=== PATIENT | female | born 1950 | race Caucasian/White ===

== ENCOUNTER 2018-11-23 07:55 | Emergency (ER) | payer MEDICARE ==
[~2018-11-23] VITALS: Ht 154.9 cm; Wt 50.0 kg
[2018-11-23 07:55] VITALS: BP 143/78
== END 2018-11-23 11:18 | disposition home or self-care (01) ==
LOC: ED 10:18
DX: S42.321A Displaced transverse fracture of shaft of humerus, right arm, initial encounter for closed fracture (principal); I10 Essential (primary) hypertension; Z87.891 Personal history of nicotine dependence; X58.XXXA Exposure to other specified factors, initial encounter; Y93.89 Activity, other specified; Y92.89 Other specified places as the place of occurrence of the external cause; Y99.8 Other external cause status
CPT/HCPCS: 71045; 73030; 73060; 73200; 96372; 99284; J1885

== ENCOUNTER 2019-03-13 18:14 | Emergency (ER) | payer MEDICARE ==
[~2019-03-13] VITALS: Ht 154.9 cm; Wt 50.8 kg
[2019-03-13 18:23] VITALS: BP 177/92
--- NOTE | 2019-03-13 20:30 | NUR ---
PT DISCHARGED BY DR CHO Addendum: 03/13/19 at 2104 by LHAFEN PT'S SPLINT WAS TAKEN OFF PER DR CHO AND PT WAS PUT IN A SLING.
== END 2019-03-13 20:32 | disposition home or self-care (01) ==
LOC: ED 20:26
DX: M79.621 Pain in right upper arm (principal); I10 Essential (primary) hypertension; M81.0 Age-related osteoporosis without current pathological fracture
CPT/HCPCS: 99281; 99282

== ENCOUNTER 2019-05-16 14:57 | Inpatient (IN) | payer MEDICARE ==
[~2019-05-16] VITALS: Ht 154.9 cm; Wt 55.0 kg
--- NOTE | 2019-05-16 15:09 | NUR ---
[facility] GLF THIS PM WITH SUBSEQUENT RT HIP PAIN. BIBA; REPORT RECEIVED FROM EMS. 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 PT DENIES HEAD INJURY/NECK PAIN/SYNCOPE. PT ATTACHED TO BP AND SPO2 MONITORS. CALL LIGHT IN REACH. REPORT GIVEN TO JESSIE OLIVAS AT BEDSIDE.
[2019-05-16] MEDS ORDERED: ONDANSETRON 2MG/ML, 2ML ONE ×2 (15:56→16:32)
[2019-05-16] MEDS ORDERED: HYDROmorphone 1 MG/ML, 1ML INJ ONE ×2 (15:56→19:16)
[2019-05-16] MEDS ORDERED: ONDANSETRON 2MG/ML, 2ML IVPush ONE (16:00)
--- NOTE | 2019-05-16 16:07 | NUR ---
PT AT XR
[2019-05-16] MEDS: HYDROmorphone 1 MG/ML, 1ML INJ IVPush PRN ×2 (16:34→19:23)
--- NOTE | 2019-05-16 16:38 | NUR ---
MEDS PER JUN. HIP FX. ERMD AT BEDSIDE TO UPDATE. PLAN FOR ADMIT.
[2019-05-16 16:45] LABS: BASOPHILS # (AUTO) 0.05 x10^3/uL (0-0.1); BASOPHILS % (AUTO) 1 % (0-1); EOSINOPHILS # (AUTO) 0.24 x10^3/uL (0-0.4); EOSINOPHILS % (AUTO) 2 % (1-7); LYMPHOCYTES # (AUTO) 2.11 x10^3/uL (1-3.4); LYMPHOCYTES % (AUTO) 18 % (22-44); MD NO; MEAN CORPUSCULAR HEMOGLOBIN 29.6 pg (27.0-34.8); MEAN CORPUSCULAR VOLUME 92.5 fL (80-100); MONOCYTES # (AUTO) 0.56 x10^3/uL (0.2-0.8); MONOCYTES % (AUTO) 5 % (2-9); NEUTROPHILS # (AUTO) 9.14 x10^3/uL (1.8-6.8); NEUTROPHILS % (AUTO) 76 % (42-75); PLATELET COUNT 406 x10^3/uL (130-400); RED BLOOD COUNT 3.38 x10^6/uL (3.82-5.3); RED CELL DISTRIBUTION WIDTH 13.8 % (9.6-15.2)
--- NOTE | 2019-05-16 16:51 | NUR ---
dr sheehan spoke with dr mccormack
[2019-05-16 16:55] LABS: INTERNATIONAL NORMALIZED RATIO 0.97 (0.93-1.1); PROTHROMBIN TIME 10.3 Seconds (9.6-11.5)
[2019-05-16 16:56] LABS: ALBUMIN 3.6 g/dL (3.4-5.0); ANION GAP 8 mmol/L (5-15); CALCIUM 9.5 mg/dL (8.5-10.1); CHLORIDE 111 mmol/L (98-107); CREATININE 0.74 mg/dL (0.55-1.02)
--- NOTE | 2019-05-16 18:14 | NUR ---
pt to go to sx, unknown when. asking for food, remains npo. freeman inserted, repostioned. as
--- NOTE | 2019-05-16 18:27 | NUR ---
PER DR. VIET LOZA TO PROVIDE PT WITH FOOD THIS EVENING, ASKED THAT PT BE NPO AFTER MIDNIGHT.
[2019-05-16] MEDS ORDERED: ONDANSETRON ODT 4 MG PO PRN (18:30)
[2019-05-16] MEDS ORDERED: ACETAMINOPHEN 325 MG TABLET PO PRN (18:30)
[2019-05-16] MEDS ORDERED: BISACODYL 10 MG SUPP PR PRN (18:30)
[2019-05-16] MEDS ORDERED: POLYETHYLENE GLYCOL 17 GM PACKET PO PRN (18:30)
[2019-05-16] MEDS ORDERED: HEPARIN 5,000 UNITS/ML, 1ML ONE (19:15)
[2019-05-16] MEDS: HEPARIN 5,000 UNITS/ML, 1ML SQ SCH (19:23)
[2019-05-16] MEDS ORDERED: SODIUM CHLORIDE FLUSH 10ML SYR IVF PRN (19:30)
--- NOTE | 2019-05-16 19:32 | NUR ---
meds per jun. given food per . report to gaurav chanel. pt transported. as
[2019-05-16 20:04] VITALS: BP 133/73
[2019-05-16] MEDS: SODIUM CHLORIDE FLUSH 10ML SYR IVF SCH (21:00)
[2019-05-16] MEDS ORDERED: NICOTINE 21 MG/24 HR PATCH.TD24 TD ONE (23:30)
[2019-05-16] MEDS: METHOCARBAMOL 500 MG TABLET PO PRN (23:53)
[2019-05-16] MEDS: TEMAZEPAM 15 MG CAPSULE PO PRN (23:53)
[2019-05-17 01:12] VITALS: BP 148/78
[2019-05-17] MEDS: HEPARIN 5,000 UNITS/ML, 1ML SQ SCH ×2 (02:30→10:28)
[2019-05-17 03:44] VITALS: BP 164/71
[2019-05-17 05:57] LABS: CHLORIDE 108 mmol/L (98-107)
[2019-05-17 06:02] LABS: ALANINE AMINOTRANSFERASE 20 U/L (12-78); ALBUMIN 2.8 g/dL (3.4-5.0); ALKALINE PHOSPHATASE 70 U/L (45-117); ANION GAP 7 mmol/L (5-15); BILIRUBIN,TOTAL 0.3 mg/dL (0.2-1.0); CREATININE 0.69 mg/dL (0.55-1.02); TOTAL PROTEIN 6.1 g/dL (6.4-8.2)
[2019-05-17 06:15] LABS: BASOPHILS # (AUTO) 0.05 x10^3/uL (0-0.1); BASOPHILS % (AUTO) 1 % (0-1); EOSINOPHILS # (AUTO) 0.18 x10^3/uL (0-0.4); EOSINOPHILS % (AUTO) 2 % (1-7); LYMPHOCYTES # (AUTO) 2.24 x10^3/uL (1-3.4); LYMPHOCYTES % (AUTO) 25 % (22-44); MD NO; MEAN CORPUSCULAR HEMOGLOBIN 30.3 pg (27.0-34.8); MEAN CORPUSCULAR HGB CONC 33.3 g/dL (32.4-35.8); MEAN CORPUSCULAR VOLUME 90.9 fL (80-100); MEAN PLATELET VOLUME 8.3 fL (7.4-10.4); MONOCYTES # (AUTO) 0.48 x10^3/uL (0.2-0.8); MONOCYTES % (AUTO) 5 % (2-9); NEUTROPHILS # (AUTO) 5.94 x10^3/uL (1.8-6.8); NEUTROPHILS % (AUTO) 67 % (42-75); PLATELET COUNT 363 x10^3/uL (130-400); RED BLOOD COUNT 2.91 x10^6/uL (3.82-5.3); RED CELL DISTRIBUTION WIDTH 13.8 % (9.6-15.2)
[2019-05-17 06:55] VITALS: BP 152/75
[2019-05-17] MEDS: DULOXETINE 30 MG CAPSULE.DR PO SCH (08:11)
[2019-05-17] MEDS: FAMOTIDINE 10 MG TAB PO SCH (08:12)
[2019-05-17] MEDS: SENNA/DOCUSATE TABLET PO SCH (08:12)
[2019-05-17] MEDS: morphine SULFATE 10 MG/ML, 1ML IVPush PRN (08:12)
[2019-05-17] MEDS: SODIUM CHLORIDE FLUSH 10ML SYR IVF SCH ×3 (08:12→21:00)
[2019-05-17] MEDS ORDERED: NEOSPORIN OINT, 15GM ONE (10:06)
[2019-05-17] MEDS ORDERED: PROMETHAZINE 25 MG/ML, 1ML IV PRN (10:30)
[2019-05-17] MEDS ORDERED: KETOROLAC 30 MG/1 ML IV PRN (10:30)
[2019-05-17] MEDS ORDERED: HYDROmorphone 2 MG/ML, 1ML IVPush PRN ×2 (10:30→14:30)
[2019-05-17] MEDS ORDERED: DIAZEPAM 5 MG/ML, 2ML IVPush PRN (10:30)
[2019-05-17] MEDS ORDERED: LABETALOL 5MG/ML, 20ML IV PRN (10:30)
[2019-05-17] MEDS ORDERED: ACETAMINOPHEN 325 MG TABLET PO PRN (10:30)
[2019-05-17] MEDS ORDERED: ALBUTEROL SULFATE 2.5 MG/3 ML NPPB PRN (10:30)
[2019-05-17] MEDS ORDERED: hydrALAzine 20 MG/ML, 1ML IV PRN (10:30)
[2019-05-17] MEDS ORDERED: MEPERIDINE/PF 25MG/0.5ML IVPush PRN (10:30)
[2019-05-17] MEDS ORDERED: FENTANYL PF 100 MCG/2ML ONE ×2 (10:32→11:18)
[2019-05-17] MEDS ORDERED: PROPOFOL 10 MG/ML, 20ML ONE (10:50)
[2019-05-17] MEDS ORDERED: CEFAZOLIN 1,000 MG ONE (10:50)
[2019-05-17] MEDS ORDERED: DEXAMETHASONE 4 MG/ML, 1ML ONE (10:50)
[2019-05-17] MEDS ORDERED: ONDANSETRON 2MG/ML, 2ML ONE (10:50)
[2019-05-17] MEDS: OXYcodone 5 MG/5 ML ORAL.SOL UDC PO PRN ×2 (11:17→12:18)
[2019-05-17] MEDS ORDERED: OXYcodone 5 MG/5 ML ORAL.SOL UDC ONE ×2 (11:18→12:18)
[2019-05-17] MEDS ORDERED: ACETAMINOPHEN 650 MG/20.3 ML UDC ONE (11:18)
[2019-05-17] MEDS: FENTANYL PF 100 MCG/2ML IV PRN ×2 (11:19→11:35)
[2019-05-17 13:11] VITALS: BP 148/71
[2019-05-17] MEDS ORDERED: ONDANSETRON 2MG/ML, 2ML IV PRN (15:00)
[2019-05-17] MEDS: KETOROLAC 30 MG/1 ML IV SCH ×2 (15:05→23:59)
[2019-05-17] MEDS: CEFAZOLIN PMX 1GM/50ML 50 ML IVPB SCH (17:51)
[2019-05-17] MEDS: OXYcodone/APAP 5/325MG TABLET PO PRN ×2 (19:20→23:59)
[2019-05-17 20:01] VITALS: BP 139/74
[2019-05-17] MEDS: NICOTINE 21 MG/24 HR PATCH.TD24 TD SCH (21:59)
[2019-05-17] MEDS: METHOCARBAMOL 500 MG TABLET PO PRN (21:59)
[2019-05-17] MEDS: TEMAZEPAM 15 MG CAPSULE PO PRN (23:58)
[2019-05-18] VITALS (10 sets, daily range): BP systolic 120–173; BP diastolic 67–79
[2019-05-18] MEDS: morphine SULFATE 10 MG/ML, 1ML IVPush PRN (02:12)
[2019-05-18] MEDS: CEFAZOLIN PMX 1GM/50ML 50 ML IVPB SCH (02:16)
[2019-05-18] MEDS: METHOCARBAMOL 500 MG TABLET PO PRN ×2 (05:10→20:06)
[2019-05-18] MEDS: OXYcodone/APAP 5/325MG TABLET PO PRN ×2 (05:10→10:06)
[2019-05-18] MEDS: KETOROLAC 30 MG/1 ML IV SCH (05:11)
[2019-05-18] MEDS ORDERED: ENOXAPARIN 40 MG/0.4 ML SQ SCH (06:00)
[2019-05-18 06:17] LABS: ANION GAP 10 mmol/L (5-15); CALCIUM 8.3 mg/dL (8.5-10.1); CHLORIDE 107 mmol/L (98-107)
[2019-05-18 06:18] LABS: CREATININE 1.21 mg/dL (0.55-1.02)
[2019-05-18 06:33] LABS: MEAN CORPUSCULAR HEMOGLOBIN 29.7 pg (27.0-34.8); MEAN CORPUSCULAR HGB CONC 32.4 g/dL (32.4-35.8); MEAN CORPUSCULAR VOLUME 91.5 fL (80-100); MEAN PLATELET VOLUME 8.7 fL (7.4-10.4); PLATELET COUNT 343 x10^3/uL (130-400); RED BLOOD COUNT 2.49 x10^6/uL (3.82-5.3)
[2019-05-18 07:42] LABS: MD MORPH REVIEW ONLY
[2019-05-18 07:43] LABS: <PLATELET ESTIMATE> ADEQUATE; <PLT MORPHOLOGY> NORMAL PLT MORPH; ANISOCYTOSIS 1+; BASOPHILS # (AUTO) 0.04 x10^3/uL (0-0.1); BASOPHILS % (AUTO) 0 % (0-1); EOSINOPHILS # (AUTO) 0.08 x10^3/uL (0-0.4); EOSINOPHILS % (AUTO) 1 % (1-7); LYMPHOCYTES # (AUTO) 2.17 x10^3/uL (1-3.4); LYMPHOCYTES % (AUTO) 21 % (22-44); MONOCYTES # (AUTO) 0.75 x10^3/uL (0.2-0.8); MONOCYTES % (AUTO) 7 % (2-9); NEUTROPHILS # (AUTO) 7.53 x10^3/uL (1.8-6.8); NEUTROPHILS % (AUTO) 71 % (42-75); OVALOCYTES 1+
[2019-05-18] MEDS: DULOXETINE 30 MG CAPSULE.DR PO SCH (08:56)
[2019-05-18] MEDS: SENNA/DOCUSATE TABLET PO SCH (08:56)
[2019-05-18] MEDS: FAMOTIDINE 10 MG TAB PO SCH (08:56)
[2019-05-18] MEDS: SODIUM CHLORIDE FLUSH 10ML SYR IVF SCH ×4 (08:56→21:49)
[2019-05-18] MEDS: HYDROcodone/APAP 7.5-325MG/15ML UDC PO PRN ×2 (14:39→20:01)
[2019-05-18] MEDS: SODIUM CHLORIDE 0.9% 1,000 ML IV SCH (15:44)
[2019-05-18] MEDS ORDERED: TRAZ-96 PO (16:03)
[2019-05-18] MEDS ORDERED: AMLO10TA8 PO (16:03)
[2019-05-18] MEDS ORDERED: DULO30CA2 PO (16:03)
[2019-05-18] MEDS ORDERED: ATEN25TA PO (16:03)
[2019-05-18] MEDS: NICOTINE 21 MG/24 HR PATCH.TD24 TD SCH (21:49)
[2019-05-18] MEDS: TEMAZEPAM 15 MG CAPSULE PO PRN (21:49)
[2019-05-19] VITALS (9 sets, daily range): BP systolic 145–176; BP diastolic 65–83
[2019-05-19] MEDS: HYDROcodone/APAP 7.5-325MG/15ML UDC PO PRN ×3 (00:50→10:26)
[2019-05-19] MEDS: METHOCARBAMOL 500 MG TABLET PO PRN (04:57)
[2019-05-19 05:43] LABS: BASOPHILS # (AUTO) 0.04 x10^3/uL (0-0.1); BASOPHILS % (AUTO) 0 % (0-1); EOSINOPHILS # (AUTO) 0.11 x10^3/uL (0-0.4); EOSINOPHILS % (AUTO) 1 % (1-7); LYMPHOCYTES # (AUTO) 2.72 x10^3/uL (1-3.4); LYMPHOCYTES % (AUTO) 32 % (22-44); MD NO; MEAN CORPUSCULAR HEMOGLOBIN 30.7 pg (27.0-34.8); MEAN CORPUSCULAR HGB CONC 32.6 g/dL (32.4-35.8); MEAN CORPUSCULAR VOLUME 94.1 fL (80-100); MEAN PLATELET VOLUME 8.9 fL (7.4-10.4); MONOCYTES # (AUTO) 0.63 x10^3/uL (0.2-0.8); MONOCYTES % (AUTO) 7 % (2-9); NEUTROPHILS # (AUTO) 5.08 x10^3/uL (1.8-6.8); NEUTROPHILS % (AUTO) 59 % (42-75); PLATELET COUNT 185 x10^3/uL (130-400); RED CELL DISTRIBUTION WIDTH 14.1 % (9.6-15.2)
[2019-05-19 05:57] LABS: CHLORIDE 113 mmol/L (98-107)
[2019-05-19 06:02] LABS: ANION GAP 7 mmol/L (5-15); CALCIUM 8.3 mg/dL (8.5-10.1); CREATININE 0.66 mg/dL (0.55-1.02)
[2019-05-19] MEDS: SENNA/DOCUSATE TABLET PO SCH (08:41)
[2019-05-19] MEDS: FAMOTIDINE 10 MG TAB PO SCH (08:41)
[2019-05-19] MEDS: SODIUM CHLORIDE FLUSH 10ML SYR IVF SCH ×2 (08:41→08:42)
[2019-05-19] MEDS: DULOXETINE 30 MG CAPSULE.DR PO SCH (08:41)
[2019-05-19] MEDS: SODIUM CHLORIDE 0.9% 1,000 ML IV SCH (08:42)
[2019-05-19] MEDS ORDERED: ATENOLOL 50 MG TABLET PO SCH (09:00)
[2019-05-19] MEDS ORDERED: AMLODIPINE 5 MG TABLET PO SCH (09:00)
[2019-05-19] MEDS ORDERED: ASPI-515 PO (10:06)
[2019-05-19] MEDS ORDERED: HYDR-36 PO (10:38)
== END 2019-05-19 11:30 | disposition home health service (06) | DRG 480 ==
LOC: ED 16:45 → EDIP 18:12 → 4NE 19:30 → DCLOUNGE 05-19 11:09
PROVIDERS: ADMIT Family Medicine; ATTEND Family Medicine
PROC: 0QS634Z Reposition Right Upper Femur with Internal Fixation Device, Percutaneous Approach (ICD-10-PCS; principal; 2019-05-17 10:30)
PROC: 30233N1 Transfusion of Nonautologous Red Blood Cells into Peripheral Vein, Percutaneous Approach (ICD-10-PCS; 2019-05-18)
DX: S72.034A Nondisplaced midcervical fracture of right femur, initial encounter for closed fracture (principal); N17.0 Acute kidney failure with tubular necrosis; D62 Acute posthemorrhagic anemia; F17.210 Nicotine dependence, cigarettes, uncomplicated; Z66 Do not resuscitate; D47.3 Essential (hemorrhagic) thrombocythemia; Z96.611 Presence of right artificial shoulder joint; I10 Essential (primary) hypertension; Y93.89 Activity, other specified; Y92.89 Other specified places as the place of occurrence of the external cause; Y99.8 Other external cause status; V58.4XXA Person boarding or alighting a pick-up truck or van injured in noncollision transport accident, initial encounter; Z90.710 Acquired absence of both cervix and uterus; Z90.89 Acquired absence of other organs; Z79.899 Other long term (current) drug therapy; Z88.0 Allergy status to penicillin; Z88.2 Allergy status to sulfonamides
CPT/HCPCS: 36415; 36430; 71045; 76000; 80048; 80053; 82040; 85014; 85018; 85025; 85610; 85730; 86850; 86900; 86923; 93005; 96374; C1713; G0378; J0690; J1100; J1170; J1644; J1650; J1885; J2405; J2704; J3010; J2270; J7030; P9016